=== PATIENT | female | born 1990 | race Caucasian/White ===

== ENCOUNTER 2016-03-10 11:01 | Emergency (ER) | payer OTHER ==
[~2016-03-10] VITALS: Ht 162.6 cm; Wt 95.0 kg
[2016-03-10 11:21] VITALS: BP 140/80; PULSE 106; RESP 20; TEMP 97.9; O2SAT 96
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
[2016-03-10] MEDS ORDERED: KETOROLAC TROMETHAMINE 30 MG/ML (IVP) VIAL IV PUSH ONE (12:00)
[2016-03-10] MEDS ORDERED: ONDANSETRON HCL 4 MG/2 ML VIAL IV PUSH ONE (12:00)
[2016-03-10 12:55] LABS: AUTOMATED NEUTROPHIL # 10.5 TH/MM3 (1.8-7.7); BASOPHIL # 0.1 TH/MM3 (0-0.2); BASOPHIL % 0.9 % (0.0-2.0); EOSINOPHIL # 0.2 TH/MM3 (0-0.4); EOSINOPHIL % 1.5 % (0.0-4.0); HEMATOCRIT 38.7 % (35.0-46.0); HEMO FLAGS DIFF FINAL; LYMPH % 17.4 % (9.0-44.0); LYMPHOCYTE # 2.5 TH/MM3 (1.0-4.8); MEAN CELL VOLUME 85.7 FL (80.0-100.0); MEAN CORPUSCULAR HEMOGLOBIN 29.5 PG (27.0-34.0); MEAN CORPUSCULAR HGB CONC 34.5 % (32.0-36.0); MONO % 5.7 % (0.0-8.0); NEUT % 74.5 % (16.0-70.0); PLATELET COUNT 430 TH/MM3 (150-450); RED BLOOD COUNT 4.52 MIL/MM3 (4.00-5.30); RED CELL DISTRIBUTION WIDTH 13.1 % (11.6-17.2); WHITE BLOOD COUNT 14.1 TH/MM3 (4.0-11.0)
--- NOTE | 2016-03-10 13:10 | RADRPT ---
EXAM DATE/TIME: 03/10/2016 12:00 [facility] COMPARISON: No previous studies available for comparison. INDICATIONS : Right rib pain. MEDICAL HISTORY : SURGICAL HISTORY : None. ENCOUNTER: Initial ACUITY: 1 day PAIN SCORE: 8/10 LOCATION: Right posterior lower rib. FINDINGS: Multiple views of the right ribs were performed. There is no evidence of displaced fracture. No archie tructive lesions or areas of periosteal thickening are seen. Expiratory view of the chest is negativ e for pneumothorax. The mediastinal structures are midline. CONCLUSION: Unremarkable examination of the right ribs and chest. Norbert Silverio MD on March 10, 2016 at 13:02 Board Certified Radiologist. This report was verified electronically.
[2016-03-10 13:16] LABS: ANION GAP 8 MEQ/L (5-15); AST (GOT) 9 U/L (15-37); BICARBONATE 24.1 MEQ/L (21.0-32.0); BLOOD UREA NITROGEN 9 MG/DL (7-18); CHLORIDE 108 MEQ/L (98-107); GLOMERULAR FILTRATION RATE 102 ML/MIN (>89); POTASSIUM 3.8 MEQ/L (3.5-5.1); SODIUM (NA) 140 MEQ/L (136-145)
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
[2016-03-10 13:23] LABS: ALKALINE PHOSPHATASE 60 U/L (45-117); ALT (GPT) 21 U/L (10-53); TOTAL BILIRUBIN ADULT 0.3 MG/DL (0.2-1.0)
[2016-03-10] MEDS ORDERED: EXTR500C PO (13:24)
[2016-03-10] MEDS ORDERED: IBUP-232 PO (13:24)
[2016-03-10 13:54] LABS: BACTERIA, URINE RARE /hpf; BLOOD, URINE NEG (NEG); COMMENT (UR) CULT NOT INDICATED; CULTURE IF INDICATED CULT NOT INDICATED; GLUCOSE,URINE NEG (NEG); KETONE, URINE NEG (NEG); NITRITE,URINE NEG (NEG); URINE COLOR COLORLESS (YELLW/STRAW)
[2016-03-10 14:01] VITALS: BP 118/76
== END 2016-03-10 14:09 | disposition home or self-care (01) ==
LOC: NEDAMB 11:01
DX: S16.1XXA Strain of muscle, fascia and tendon at neck level, initial encounter (principal); S39.012A Strain of muscle, fascia and tendon of lower back, initial encounter; M62.830 Muscle spasm of back; S70.01XA Contusion of right hip, initial encounter; V43.62XA Car passenger injured in collision with other type car in traffic accident, initial encounter
CPT/HCPCS: 71101; 72110; 72125; 80053; 81001; 84703; 85025; 96374; 96375; 99284; J1885; J2405

== ENCOUNTER 2016-06-22 22:10 | Emergency (ER) | payer SELFPAY ==
[~2016-06-22] VITALS: Ht 162.6 cm; Wt 105.0 kg
[~2016-06-22 22:10] MED LIST: EXTR500C PO; IBUP-232 PO
[2016-06-22 22:11] VITALS: BP 145/72; PULSE 99; RESP 18; TEMP 97.9; O2SAT 98
[2016-06-22] MEDS ORDERED: BENA25TA3 PO (22:40)
--- NOTE | 2016-06-22 22:42 | PD ---
HPI Chief Complaint: Chest Pain Time Seen by Provider: 22:41 Travel History International Travel<30 days: No Contact w/Intl Traveler<30days: No Traveled to known affect area: No History of Present Illness HPI 25-year-old female came to the emergency room with history of left-sided chest pain on and off for past 3 hours. Patient says the pain is sharp in nature and radiates to her left arm to the right side under her breast and to both sides of her jaws. Currently the pain is not there but she says it comes and goes and each time last for about a minute. Patient was really concerned that she was having a heart attack and hence came in. She has had recent multiple long distance travel history from here to [place] and then back again. Vital signs were stable. She is otherwise a healthy person. There is a family history of cardiac issues as well as DVT. PFS Past Medical History Narrative Medical List of his past medical, surgical, social and family history was reviewed from the nursing note. Cancer: Yes (OVARIAN) Tetanus Vaccination: < 5 Years Influenza Vaccination: No ?: Not LMP: 06/14/16 : 1 Miscarriage: 1 Past Surgical History Gynecologic Surgery: Yes (LEFT OVARY REMOVAL) Social History Alcohol Use: No Tobacco Use: Yes (02/28 PPD) Substance Use: No Allergies-Medications (Allergen,Severity, Reaction): Coded Allergies: Iodine (Verified Allergy, Unknown, 06/22/16) Uncoded Allergies: apricots (Allergy, Unknown, 03/10/16) Comments List of her allergies reviewed from the nursing note. Reported Meds & Prescriptions Reported Meds & Active Scripts Active Ventolin Hfa 18 GM Inh (Albuterol Sulfate) 90 Mcg/Act Aer 2 Puff INH Q4-6H PRN Reported Benadryl Allergy (Diphenhydramine HCl) 25 Mg Tab 25 Mg PO Q6H PRN Narrative Medication List of her home medications reviewed from the nursing note. Review of Systems Except as stated in HPI: all other systems reviewed are Neg Physical Exam Narrative GENERAL: Awake, alert, obesity, no obvious distress SKIN: Focused skin assessment warm/dry. HEAD: Atraumatic. Normocephalic. EYES: Pupils equal and round. No scleral icterus. No injection or drainage. ENT: No nasal bleeding or discharge. Mucous membranes pink and moist. NECK: Trachea midline. No JVD. CARDIOVASCULAR: Regular rate and rhythm. No murmur appreciated. RESPIRATORY: No accessory muscle use. Clear to auscultation. Breath sounds equal bilaterally. GASTROINTESTINAL: Abdomen soft, non-tender, nondistended. Hepatic and splenic margins not palpable. MUSCULOSKELETAL: No obvious deformities. No clubbing. No cyanosis. No edema. NEUROLOGICAL: Awake and alert. No obvious cranial nerve deficits. Motor grossly within normal limits. Normal speech. PSYCHIATRIC: Appropriate mood and affect; insight and judgment normal. Data Data Last Documented VS Vital Signs Date Time Temp Pulse Resp B/P Pulse Ox O2 Delivery O2 Flow Rate FiO2 06/22/16 22:55 18 100 Room Air 06/22/16 22:11 97.9 99 145/72 Orders Electrocardiogram (06/22/16 22:43) Basic Metabolic Panel (Bmp) (06/22/16 22:43) Complete Blood Count With Diff (06/22/16 22:43) D-Dimer (06/22/16 22:43) Prothrombin Time / Inr (Pt) (06/22/16 22:43) Troponin I (06/22/16 22:43) Chest, Single Ap (06/22/16 22:43) Ecg Monitoring (06/22/16 22:43) Bilateral Bp Monitoring (06/22/16 22:43) Iv Access Insert/Monitor (06/22/16 22:43) Oximetry (06/22/16 22:43) Oxygen Administration (06/22/16 22:43) Aspirin Chew (Aspirin Chew) (06/22/16 22:45) Sodium Chloride 0.9% Flush (Ns Flush) (06/22/16 22:45) Labs Laboratory Tests Test 06/22/16 22:50 White Blood Count 9.8 TH/MM3 Red Blood Count 4.23 MIL/MM3 Hemoglobin 12.9 GM/DL Hematocrit 35.9 % Mean Corpuscular Volume 85.0 FL Mean Corpuscular Hemoglobin 30.4 PG Mean Corpuscular Hemoglobin 35.8 % Concent Red Cell Distribution Width 13.1 % Platelet Count 348 TH/MM3 Mean Platelet Volume 7.2 FL Neutrophils (%) (Auto) 55.4 % Lymphocytes (%) (Auto) 30.8 % Monocytes (%) (Auto) 8.8 % Eosinophils (%) (Auto) 4.1 % Basophils (%) (Auto) 0.9 % Neutrophils # (Auto) 5.4 TH/MM3 Lymphocytes # (Auto) 3.0 TH/MM3 Monocytes # (Auto) 0.9 TH/MM3 Eosinophils # (Auto) 0.4 TH/MM3 Basophils # (Auto) 0.1 TH/MM3 CBC Comment DIFF FINAL Differential Comment Prothrombin Time 10.7 SEC Prothromb Time International 1.0 RATIO Ratio D-Dimer Quantitative (PE/DVT) 0.21 MG/L FEU Sodium Level 141 MEQ/L Potassium Level 4.1 MEQ/L Chloride Level 107 MEQ/L Carbon Dioxide Level 25.2 MEQ/L Anion Gap 9 MEQ/L Blood Urea Nitrogen 17 MG/DL Creatinine 0.71 MG/DL Estimat Glomerular Filtration 102 ML/MIN Rate Random Glucose 89 MG/DL Calcium Level 8.9 MG/DL Troponin I LESS THAN 0.02 NG/ML MDM Medical Decision Making Medical Screen Exam Complete: Yes Emergency Medical Condition: Yes Medical Record Reviewed: Yes Interpretation(s) Twelve-lead EKG was reviewed by me. Normal sinus rhythm, normal axis, nonspecific ST-T wave changes. Heart rate of 86 bpm. Differential Diagnosis PE, nonspecific, ACS, nonspecific chest pain Narrative Course 11:55 PM given some risk factors for DVT/PE although they were low I ordered a d -dimer which is negative. Rest of the blood test results are within normal range as well. Chest x-rays negative. Patient has received 2 baby aspirins. At this point I'll discharge her home. Procedures EKG Prior to Arrival: No Diagnosis Primary Impression: Nonspecific chest pain Referrals: Primary Care Physician 2 days Additional Instructions: Please return to the ER if the condition worsens or any other new concerns. Otherwise follow-up with your primary care. You can take Motrin/ibuprofen/ Advil or Tylenol for your pain. Med/Other Pt SpecificInfo: Prescription(s) given Scripts Albuterol 18 GM Inh (Ventolin Hfa 18 GM Inh)90 Mcg/Act Aer2 Puff INH Q4-6H PRN ( SHORTNESS OF BREATH) #1 INHALER Ref 0 Prov:Benita Staples MD 06/23/16 Disposition: 01 DISCHARGE HOME Condition: Stable Benita Staples MD Jun 22, 2016 22:41
[2016-06-22] MEDS ORDERED: SODIUM CHLORIDE 0.9% FLUSH 10 ML FLUSH IVF PRN (22:45)
[2016-06-22] MEDS ORDERED: ASPIRIN 81 MG CHEW TAB PO ONE (22:45)
[2016-06-22 22:55] VITALS: RESP 18; O2SAT 100
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
[2016-06-22 23:12] LABS: AUTOMATED NEUTROPHIL # 5.4 TH/MM3 (1.8-7.7); BASOPHIL # 0.1 TH/MM3 (0-0.2); BASOPHIL % 0.9 % (0.0-2.0); EOSINOPHIL # 0.4 TH/MM3 (0-0.4); EOSINOPHIL % 4.1 % (0.0-4.0); HEMATOCRIT 35.9 % (35.0-46.0); HEMO FLAGS DIFF FINAL; LYMPH % 30.8 % (9.0-44.0); MEAN CORPUSCULAR HEMOGLOBIN 30.4 PG (27.0-34.0); MEAN CORPUSCULAR HGB CONC 35.8 % (32.0-36.0); MONO % 8.8 % (0.0-8.0); NEUT % 55.4 % (16.0-70.0); PLATELET COUNT 348 TH/MM3 (150-450); RED BLOOD COUNT 4.23 MIL/MM3 (4.00-5.30); RED CELL DISTRIBUTION WIDTH 13.1 % (11.6-17.2); WHITE BLOOD COUNT 9.8 TH/MM3 (4.0-11.0)
[2016-06-22 23:22] LABS: PROTHROMBIN TIME - PATIENT 10.7 SEC (9.8-11.6)
[2016-06-22 23:30] LABS: ANION GAP 9 MEQ/L (5-15); BICARBONATE 25.2 MEQ/L (21.0-32.0); BLOOD UREA NITROGEN 17 MG/DL (7-18); CHLORIDE 107 MEQ/L (98-107); GLOMERULAR FILTRATION RATE 102 ML/MIN (>89); POTASSIUM 4.1 MEQ/L (3.5-5.1); SODIUM (NA) 141 MEQ/L (136-145)
[2016-06-23] MEDS ORDERED: VENTAER INH
--- NOTE | 2016-06-27 08:18 | EKG ---
Date Performed: 06/22/2016 Time Performed: 22:40:29 PTAGE: 25 years EKG: Sinus rhythm POSSIBLE LEFT ATRIAL ENLARGEMENT BORDERLINE ECG NO PREVIOUS TRACING DOCTOR: Roly Yousif Interpretating Date/Time 06/27/2016 08:15:43
== END 2016-06-23 01:10 | disposition home or self-care (01) ==
LOC: NEPE 22:10
DX: R07.9 Chest pain, unspecified (principal); Z82.49 Family history of ischemic heart disease and other diseases of the circulatory system; F17.210 Nicotine dependence, cigarettes, uncomplicated
CPT/HCPCS: 71010; 80048; 84484; 85025; 85379; 85610; 93005

== ENCOUNTER 2016-07-17 18:56 | Emergency (ER) | payer SELFPAY ==
[~2016-07-17 18:56] MED LIST changes: +BENA25TA3 PO; -EXTR500C PO; -IBUP-232 PO; +VENTAER INH
[2016-07-17 18:57] VITALS: BP 117/76; PULSE 90; RESP 16; TEMP 98.4; O2SAT 97
[2016-07-17 20:34] VITALS: BP 129/66; PULSE 73; RESP 18; TEMP 98.5; O2SAT 97
[2016-07-17] MEDS ORDERED: SODIUM CHLOR 0.9% 1000 ML INJ 1,000 ML IV SCH (20:34)
[2016-07-17 20:36] VITALS: RESP 18; O2SAT 97
--- NOTE | 2016-07-17 20:43 | PD ---
HPI Chief Complaint: GI Complaint Time Seen by Provider: 20:36 Travel History International Travel<30 days: No Contact w/Intl Traveler<30days: No Traveled to known affect area: No History of Present Illness HPI Patient comes in complaining of flulike symptoms that she awoke with today. Patient states that she been having a headache, nausea, vomiting, diarrhea, abdominal discomfort, and subjective fevers today. Reports diarrhea has been all day and vomiting has been 5 or 6 episodes. Patient denies any neck pain, chest pain, shortness of breath, numbness or tingling anywhere, dizziness, change in vision, blood in vomit, blood in stool, or bilious vomit. Patient states she did take Tylenol for this for symptoms. Patient states that her roommate was having similar symptoms last night and was around someone yesterday who from bacterial meningitis. PFSH Past Medical History Cancer: Yes (OVARIAN) Diminished Hearing: No GERD: Yes Tetanus Vaccination: < 5 Years Influenza Vaccination: No ?: Not LMP: 07/10/16 : 1 Miscarriage: 1 Past Surgical History Genitourinary Surgery: Yes (laproscopic for ovarian cancer 10years ago) Gynecologic Surgery: Yes (LEFT OVARY REMOVAL) Social History Alcohol Use: No Tobacco Use: Yes Substance Use: No Allergies-Medications (Allergen,Severity, Reaction): Coded Allergies: Iodine (Verified Allergy, Unknown, 07/17/16) Uncoded Allergies: apricots (Allergy, Unknown, 03/10/16) Reported Meds & Prescriptions Reported Meds & Active Scripts Active Bentyl (Dicyclomine HCl) 10 Mg Cap 10 Mg PO TID Zofran Odt (Ondansetron Odt) 4 Mg Tab 4 Mg SL Q6HR PRN Review of Systems Except as stated in HPI: all other systems reviewed are Neg Physical Exam Narrative GENERAL: Well-developed, overly nourished, in no acute distress, and non-ill appearing. SKIN: Focused skin assessment warm and dry. HEAD: Atraumatic. Normocephalic. EYES: Pupils equal and round. EOMI. No scleral icterus. No injection or drainage. ENT: No nasal bleeding or discharge. Mucous membranes pink and moist. NECK: Trachea midline. Supple. No nuclear rigidity. Negative Kernig and Brudzinski signs. CARDIOVASCULAR: Regular rate and rhythm. No murmur appreciated. RESPIRATORY: No accessory muscle use. No respiratory distress. Clear to auscultation. Breath sounds equal bilaterally. GASTROINTESTINAL: Abdomen soft, non-tender, nondistended. Hepatic and splenic margins not palpable. Normal bowel sounds 4. No pulsatile mass. MUSCULOSKELETAL: No obvious deformities. No clubbing. No cyanosis. No edema. Full range of motion. NEUROLOGICAL: Awake and alert. No obvious cranial nerve deficits. Motor grossly within normal limits. Normal speech. PSYCHIATRIC: Appropriate mood and affect; insight and judgment normal. Data Data Last Documented VS Vital Signs Date Time Temp Pulse Resp B/P Pulse Ox O2 Delivery O2 Flow Rate FiO2 07/17/16 20:36 18 97 Room Air 07/17/16 20:34 98.5 73 129/66 Orders Complete Blood Count With Diff (07/17/16 20:34) Comprehensive Metabolic Panel (07/17/16 20:34) Lipase (07/17/16 20:34) Urinalysis - C+S If Indicated (07/17/16 20:34) Iv Access Insert/Monitor (07/17/16 20:34) Ecg Monitoring (07/17/16 20:34) Oximetry (07/17/16 20:34) Sodium Chlor 0.9% 1000 Ml Inj (Ns 1000 M (07/17/16 20:34) Sodium Chloride 0.9% Flush (Ns Flush) (07/17/16 20:45) Ondansetron Inj (Zofran Inj) (07/17/16 20:45) Ed Urine Pregnancytest Poc (07/17/16 20:34) Labs Laboratory Tests Test 07/17/16 07/17/16 20:45 20:55 White Blood Count 12.4 TH/MM3 Red Blood Count 4.69 MIL/MM3 Hemoglobin 13.4 GM/DL Hematocrit 40.1 % Mean Corpuscular Volume 85.6 FL Mean Corpuscular Hemoglobin 28.6 PG Mean Corpuscular Hemoglobin 33.4 % Concent Red Cell Distribution Width 13.1 % Platelet Count 361 TH/MM3 Mean Platelet Volume 7.3 FL Neutrophils (%) (Auto) 64.5 % Lymphocytes (%) (Auto) 27.7 % Monocytes (%) (Auto) 4.9 % Eosinophils (%) (Auto) 2.4 % Basophils (%) (Auto) 0.5 % Neutrophils # (Auto) 8.0 TH/MM3 Lymphocytes # (Auto) 3.4 TH/MM3 Monocytes # (Auto) 0.6 TH/MM3 Eosinophils # (Auto) 0.3 TH/MM3 Basophils # (Auto) 0.1 TH/MM3 CBC Comment DIFF FINAL Differential Comment Sodium Level 140 MEQ/L Potassium Level 3.7 MEQ/L Chloride Level 105 MEQ/L Carbon Dioxide Level 27.0 MEQ/L Anion Gap 8 MEQ/L Blood Urea Nitrogen 11 MG/DL Creatinine 0.82 MG/DL Estimat Glomerular Filtration 86 ML/MIN Rate Random Glucose 81 MG/DL Calcium Level 9.2 MG/DL Total Bilirubin 0.3 MG/DL Aspartate Amino Transf 19 U/L (AST/SGOT) Alanine Aminotransferase 26 U/L (ALT/SGPT) Alkaline Phosphatase 67 U/L Total Protein 7.5 GM/DL Albumin 3.8 GM/DL Lipase 114 U/L Urine Color YELLOW Urine Turbidity CLEAR Urine pH 5.5 Urine Specific [place] 1.025 Urine Protein NEG mg/dL Urine Glucose (UA) NEG mg/dL Urine Ketones NEG mg/dL Urine Occult Blood NEG Urine Nitrite NEG Urine Bilirubin NEG Urine Urobilinogen LESS THAN 2.0 MG/DL Urine Leukocyte Esterase NEG Urine WBC 1 /hpf Urine Squamous Epithelial 1 /hpf Cells Urine Mucus FEW /lpf Microscopic Urinalysis Comment CULT NOT INDICATED MDM Medical Decision Making Medical Screen Exam Complete: Yes Emergency Medical Condition: Yes Differential Diagnosis Electrolyte abnormality, anemia, viral syndrome, gastroenteritis, dehydration, other Narrative Course The patient presented with symptoms suspicious for gastritis. The patient appeared comfortable, well hydrated and the abdominal exam was unremarkable and minimal to nontender to me. Laboratory evaluation revealed no significant abnormality. There was no evidence of an acute, surgical abdomen at this time. There was no clinical evidence to support cholecystitis/cholelithiasis, pancreatitis, perforation of gastric ulcer, colitis, diverticulitis, bacterial peritonitis, obstruction, volvulus, early appendicitis, or hernial incarceration or strangulation nor significant GIB at this time. There was no evidence to support vascular pathology such as AAA, mesenteric ischemia. There was also no clinical evidence by history, exam or risk factors to suggest atypical presentation of cardiac disease such as ACS, AMI or atypical angina. No evidence to suggest genitourinary etiology as well. During the course of the ED visit, the patient noted improvement Clinical picture was discussed with the patient, as well as plan of care. The patient was instructed to follow up with their physician. Abdominal pain warnings were discussed with the patient. The patient is to return if worsens, pain worsens or changes, develop fever, inability to tolerate fluids with or without vomiting, unable to establish follow up or as needed. The patient agrees with plan. Patient in no obvious distress upon re-evaluation. All pertinent laboratory result(s) discussed with patient. Discussed patient with Dr. Rubi prior to discharge, who is in agreement with plan of care and disposition. Patient was asked if they wanted to speak to my attending, which the patient did not wish to do at this time. Any questions/concerns in reference to patient diagnosis/ condition discussed and clarified prior to patient's discharge. Reinforced sheer importance of close follow up with patient's primary physician or primary care clinic. Instructed patient to return to ED immediately, if symptoms return/ worsen. Pt showed understanding of above instructions. Further instructions and recommendations were detailed in discharge paperwork. Pt ambulated without difficulty out of ED at discharge. Diagnosis Primary Impression: Gastroenteritis Patient Instructions: Gastroenteritis (ED), General Instructions Additional Instructions: Follow-up with your primary care physician 2-3 days for reevaluation. Take all medication as prescribed. Use [id number] Tylenol and/or ibuprofen as needed for pain and/or fevers. Follow instructions on the packaging. Drink plenty of non-caffeinated and nonalcoholic fluids. Return to the emergency department if symptoms get worse. Med/Other Pt SpecificInfo: Prescription(s) given Scripts Dicyclomine (Bentyl)10 Mg Cap10 Mg PO TID #9 CAP Ref 0 Prov:Sarah Rubi MD 07/17/16 Ondansetron Odt (Zofran Odt)4 Mg Tab4 Mg SL Q6HR PRN (Nausea/Vomiting) #12 TAB Ref 0 Prov:Sarah Rubi MD 07/17/16 Disposition: 01 DISCHARGE HOME Condition: Stable Sunday [place] July 17, 2016 20:43
[2016-07-17] MEDS ORDERED: ONDANSETRON HCL 4 MG/2 ML VIAL IM ONE (20:45)
[2016-07-17] MEDS ORDERED: SODIUM CHLORIDE 0.9% FLUSH 10 ML FLUSH IV FLUSH PRN (20:45)
[2016-07-17 21:10] LABS: BASOPHIL # 0.1 TH/MM3 (0-0.2); BASOPHIL % 0.5 % (0.0-2.0); EOSINOPHIL # 0.3 TH/MM3 (0-0.4); EOSINOPHIL % 2.4 % (0.0-4.0); HEMATOCRIT 40.1 % (35.0-46.0); HEMO FLAGS DIFF FINAL; LYMPH % 27.7 % (9.0-44.0); LYMPHOCYTE # 3.4 TH/MM3 (1.0-4.8); MEAN CELL VOLUME 85.6 FL (80.0-100.0); MEAN CORPUSCULAR HEMOGLOBIN 28.6 PG (27.0-34.0); MEAN CORPUSCULAR HGB CONC 33.4 % (32.0-36.0); MONO % 4.9 % (0.0-8.0); NEUT % 64.5 % (16.0-70.0); PLATELET COUNT 361 TH/MM3 (150-450); RED BLOOD COUNT 4.69 MIL/MM3 (4.00-5.30); RED CELL DISTRIBUTION WIDTH 13.1 % (11.6-17.2); WHITE BLOOD COUNT 12.4 TH/MM3 (4.0-11.0)
[2016-07-17 21:35] LABS: BLOOD, URINE NEG (NEG); COMMENT (UR) CULT NOT INDICATED; CULTURE IF INDICATED CULT NOT INDICATED; GLUCOSE,URINE NEG (NEG); KETONE, URINE NEG (NEG); MUCUS URINE FEW /lpf (OCC); NITRITE,URINE NEG (NEG); PH, URINE 5.5 (5.0-8.5); SQUAMOUS EPITHELIAL CELL URINE 1 /hpf (0-5); URINE COLOR YELLOW (YELLW/STRAW)
[2016-07-17 21:39] LABS: ANION GAP 8 MEQ/L (5-15); AST (GOT) 19 U/L (15-37); BLOOD UREA NITROGEN 11 MG/DL (7-18); CHLORIDE 105 MEQ/L (98-107); GLOMERULAR FILTRATION RATE 86 ML/MIN (>89); POTASSIUM 3.7 MEQ/L (3.5-5.1); SODIUM (NA) 140 MEQ/L (136-145)
[2016-07-17 21:42] LABS: ALKALINE PHOSPHATASE 67 U/L (45-117); ALT (GPT) 26 U/L (10-53); TOTAL BILIRUBIN ADULT 0.3 MG/DL (0.2-1.0)
[2016-07-17] MEDS ORDERED: ZOFR4TAB3 SL (22:11)
[2016-07-17] MEDS ORDERED: DICY10 PO (22:11)
== END 2016-07-17 22:59 | disposition home or self-care (01) ==
LOC: NEPE 18:56
DX: K52.9 Noninfective gastroenteritis and colitis, unspecified (principal); R51 Headache; R50.9 Fever, unspecified; Z72.0 Tobacco use; Z85.43 Personal history of malignant neoplasm of ovary; Z87.19 Personal history of other diseases of the digestive system
CPT/HCPCS: 80053; 81001; 83690; 84703; 85025; 96372; 99284; J2405; J7030